=== PATIENT | male | born 1970 | race Caucasian/White ===

== ENCOUNTER 2018-10-31 20:54 | Outpatient (CLI) | payer BC | END 2018-11-01 06:34 | disposition home or self-care (01) | LOC: SLEEP 20:54 | PROVIDERS: ATTEND Family Medicine | DX: G47.33 Obstructive sleep apnea (adult) (pediatric) (principal); I10 Essential (primary) hypertension; R06.83 Snoring | CPT/HCPCS: 95811 ==

== ENCOUNTER 2020-06-20 09:27 | Emergency (ER) | payer BC ==
[~2020-06-20] VITALS: Ht 177 cm; Wt 117.0 kg
[2020-06-20] MEDS ORDERED: ACETAMINOPHEN 500 MG TAB (TYLENOL) ONE (09:41)
[2020-06-20] MEDS ORDERED: NS IV 1000 ML 1,000 ML ONE (09:41)
[2020-06-20] MEDS ORDERED: FENO134C (09:49)
[2020-06-20] MEDS ORDERED: AMLO-167 (09:49)
[2020-06-20] MEDS ORDERED: HYDR25TA4 (09:49)
--- NOTE | 2020-06-20 09:49 | ED Dyspnea ---
General Stated Complaint: LOW OXYGEN, COVID + 06/14/20 Source of Information: Patient Exam Limitations: No Limitations History of Present Illness Date Seen by Provider: Jun 20, 2020 Time Seen by Provider: 09:46 Initial Comments Patient is a 49-year-old male who presents to the emergency department today with a chief complaint of having low oxygen saturations at home this morning. Patient states that he was diagnosed with coronavirus on June 14. He started having symptoms he believes on June 12. Patient endorses headache, congestion and cough. No runny nose but he has had a mildly sore throat. He has a little bit of diarrhea but denies any problems with urination. He has had significantly decreased appetite with loss of taste and smell but he thinks that those are returning. Patient states he has sick contacts at home both his and his daughter also have coronavirus. 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 He also states that yesterday when he checked his oxygen it was somewhere in the mid 80s. He states he sat on his couch and took deep breaths and his oxygen levels came up. Patient states when he got up this morning he checked it and it was running at 88 to 89%. He denies a productive cough. He states it is mostly dry. He has been taking ibuprofen for the body aches, sore throat and headache. Last dose of ibuprofen was last night and he took 2 tablets. He also completed a Z-Kevin. He is also been taking some [id number] vitamins. All other review of systems reviewed and negative except as stated. Timing/Duration: 1 Week Severity: Moderate Prior Episodes/Possible Cause: Illness Exposure Associated Symptoms: Cough, Loss of Appetite Allergies and Home Medications Allergies Coded Allergies: No Known Drug Allergies (Unverified , 06/20/20) Patient Home Medication List Home Medication List Reviewed: Yes Review of Systems Review of Systems Constitutional: see HPI, malaise, weakness EENTM: throat pain Respiratory: cough; No short of breath Cardiovascular: no symptoms reported Gastrointestinal: diarrhea Genitourinary: no symptoms reported Musculoskeletal: no symptoms reported Skin: no symptoms reported Psychiatric/Neurological: No Symptoms Reported All Other Systems Reviewed Negative Unless Noted: Yes Physical Exam Vital Signs Vital Signs - First Documented 06/20/20 09:30 Temp 37.6 Pulse 73 Resp 16 B/P (MAP) 135/84 (101) Pulse Ox 89 O2 Delivery Room Air Capillary Refill : Height, Weight, BMI Height: '" Weight: lbs. oz. kg; BMI Method: General Appearance: No Apparent Distress, WD/WN HEENT: PERRL/EOMI Neck: Full Range of Motion, Normal Inspection Respiratory: No Accessory Muscle Use, No Respiratory Distress, Crackles (right basilar); No Respiratory Distress, No Wheezing; Other (Pulse Ox 89%) Cardiovascular: Regular Rate, Rhythm, No Murmur, Other (brisk capiallry refill) Peripheral Pulses: 2+ Radial Pulses (R), 2+ Radial Pulses (L) Gastrointestinal: Normal Bowel Sounds, Non Tender, Soft Extremity: Normal Inspection Neurologic/Psychiatric: Alert, Oriented x3, No Motor/Sensory Deficits, Normal Mood/Affect Skin: Normal Color, Warm/Dry Focused Exam Lactate Level 06/20/20 09:40: Lactic Acid Level 1.39 Lactic Acid Level Laboratory Tests Test 06/20/20 09:40 Lactic Acid Level 1.39 MMOL/L (0.50-2.00) Progress/Results/Core Measures Results/Orders Lab Results Laboratory Tests Test 06/20/20 09:40 Range/Units White Blood Count 3.0 L 4.3-11.0 10^3/uL Red Blood Count 4.78 4.30-5.52 10^6/uL Hemoglobin 14.4 13.3-17.7 g/dL Hematocrit 43 40-54 % Mean Corpuscular Volume 90 80-99 fL Mean Corpuscular Hemoglobin 30 25-34 pg Mean Corpuscular Hemoglobin Concent 33 32-36 g/dL Red Cell Distribution Width 13.0 10.0-14.5 % Platelet Count 162 130-400 10^3/uL Mean Platelet Volume 10.6 9.0-12.2 fL Immature Granulocyte % (Auto) 0 % Neutrophils (%) (Auto) 71 42-75 % Lymphocytes (%) (Auto) 20 12-44 % Monocytes (%) (Auto) 8 0-12 % Eosinophils (%) (Auto) 0 0-10 % Basophils (%) (Auto) 0 0-10 % Neutrophils # (Auto) 2.2 1.8-7.8 10^3/uL Lymphocytes # (Auto) 0.6 L 1.0-4.0 10^3/uL Monocytes # (Auto) 0.2 0.0-1.0 10^3/uL Eosinophils # (Auto) 0.0 0.0-0.3 10^3/uL Basophils # (Auto) 0.0 0.0-0.1 10^3/uL Immature Granulocyte # (Auto) 0.0 0.0-0.1 10^3/uL Sodium Level 136 135-145 MMOL/L Potassium Level 3.9 3.6-5.0 MMOL/L Chloride Level 101 98-107 MMOL/L Carbon Dioxide Level 24 21-32 MMOL/L Anion Gap 11 5-14 MMOL/L Blood Urea Nitrogen 21 H 7-18 MG/DL Creatinine 1.36 H 0.60-1.30 MG/DL Estimat Glomerular Filtration Rate 55 BUN/Creatinine Ratio 15 Glucose Level 119 H 70-105 MG/DL Lactic Acid Level 1.39 0.50-2.00 MMOL/L Calcium Level 8.9 8.5-10.1 MG/DL Corrected Calcium 8.7 8.5-10.1 MG/DL Total Bilirubin 0.7 0.1-1.0 MG/DL Aspartate Amino Transf (AST/SGOT) 41 H 5-34 U/L Alanine Aminotransferase (ALT/SGPT) 41 0-55 U/L Alkaline Phosphatase 36 L 40-136 U/L C-Reactive Protein High Sensitivity 8.54 H 0.00-0.50 MG/DL Total Protein 8.1 6.4-8.2 GM/DL Albumin 4.2 3.2-4.5 GM/DL Procalcitonin 0.08 <0.10 NG/ML My Orders Orders - VALORIE HANKS MD Ns Iv 1000 Ml (Sodium Chloride 0.9%) (06/20/20 09:41) Acetaminophen Tablet (Tylenol Tablet) (06/20/20 09:41) Cbc With Automated Diff (06/20/20 09:49) Comprehensive Metabolic Panel (06/20/20 09:49) Blood Culture (06/20/20 09:49) Hs C Reactive Protein (06/20/20 09:49) Procalcitonin (Pct) (06/20/20 09:49) Chest 1 View, Ap/Pa Only (06/20/20 09:49) Ed Iv/Invasive Line Start (06/20/20 09:49) Lactic Acid Analyzer (06/20/20 09:49) Acetaminophen Tablet (Tylenol Tablet) (06/20/20 10:00) Ns Iv 1000 Ml (Sodium Chloride 0.9%) (06/20/20 10:00) Albuterol Inhaler (Ventolin Hfa) (06/20/20 10:17) Medications Given in ED Current Medications Medications Dose Ordered Sig/Gabriel Route Start Time Stop Time Status Last Admin Dose Admin Acetaminophen 1,000 mg ONCE ONCE PO 06/20/20 10:00 06/20/20 10:01 DC 06/20/20 09:56 1,000 MG Vital Signs/I&O 06/20/20 09:30 Temp 37.6 Pulse 73 Resp 16 B/P (MAP) 135/84 (101) Pulse Ox 89 O2 Delivery Room Air Progress Progress Note : Time: 10:41 Progress Note Patient is receiving 1 L of normal saline; chest x-ray as read per radiologist shows mild patchy bibasilar opacities consistent with an inflammatory or infectious process. Patient is given albuterol via MDI to hopefully improve his oxygen saturations above 90. Resting comfortably no complaints. 1132 Patient received 1 L of normal saline fluid bolus. He also had Tylenol as well as several puffs of an albuterol inhaler. Patient states that he is feeling better. He has been monitored for approximately 30 minutes post albuterol. His oxygen saturations have continued to stay about 93%. He looks well. He is agreeable with discharge. Discussed with Dr. Mane. We will place the patient on 40 mg of prednisone daily for the next 6 days. Patient is given good return precautions. He verbalizes understanding, all questions are sought and answered and he is stable for discharge. Diagnostic Imaging Diagonstic Imaging: Xray Plain Films/CT/US/NM/MRI: chest Comments [facility], [place] NAME: AMARJIT ROLLE [facility] REC#: [id number] PT STATUS: REG ER : 1970 PHYSICIAN: VALORIE HANKS MD ADMIT DATE: 06/20/20/ER Draft Date of Exam:06/20/20 CHEST 1 VIEW, AP/PA ONLY Clinical indications: Patient with cough and low oxygen. COVID positive. Exam: Portable chest x-ray upright view. Comparisons: None. Findings: Lungs/pleura: There are mild patchy airspace opacities involving both lower lung field regions. The remainder of lungs are clear. There is no pneumothorax. There is no pleural effusion. Mediastinum: Unremarkable. Pulmonary vasculature: Unremarkable. Heart: Unremarkable. Bones/extrathoracic soft tissue: Unremarkable. Impression: There are mild patchy airspace opacities involving both lower lung field regions which may represent infectious or inflammatory process. Dictated on workstation # [id number] Dict: 06/20/20 1018 Trans: 06/20/20 1028 [facility] [id number] Interpreted by: KATHLEEN YODER MD Electronically signed by: Departure Impression Primary Impression: Pneumonia due to 2019 novel coronavirus Additional Impression: Hypoxia Disposition: 01 HOME, SELF-CARE Condition: Stable Departure-Patient Inst. Referrals: GABO VIVAS DO (PCP/Family) Primary Care Physician Patient Instructions: Coronavirus Disease 2019 (COVID-19) ED Add. Discharge Instructions: Drink plenty of fluids to stay well-hydrated. Use the albuterol inhaler 2 puffs every 4 hours as needed for shortness of breath or oxygen levels that are 90 or below. I have given you a prescription as well for steroids. Please take the steroids daily for the next week. If your oxygen level is staying persistently below 90 please come back to the emergency room for reevaluation. Scripts Prednisone (Prednisone) 20 Mg Tab 40 MG PO DAILY, #6 TAB 0 Refills Prov: VALORIE HANKS MD 06/20/20 Albuterol Sulfate (PROAIR HFA) 1 Puff Puff 2 PUFF IH Q4H PRN for shortness of breath, #1 PUFF 1 PUFF = 90 MCG Prov: VALORIE HANKS MD 06/20/20 Copy Copies To 1: GABO VIVAS KATHRYN M MD Jun 20, 2020 09:49
[2020-06-20 09:58] LABS: BASOPHILS % (AUTO) 0 % (0-10); EOSINOPHILS % (AUTO) 0 % (0-10); HEMATOCRIT 43 % (40-54); HEMOGLOBIN 14.4 g/dL (13.3-17.7); LYMPHOCYTES # (AUTO) 0.6 10^3/uL (1.0-4.0); LYMPHOCYTES % (AUTO) 20 % (12-44); MEAN CORPUSCULAR HEMOGLOBIN 30 pg (25-34); MEAN CORPUSCULAR HGB CONC 33 g/dL (32-36); MEAN CORPUSCULAR VOLUME 90 fL (80-99); MEAN PLATELET VOLUME 10.6 fL (9.0-12.2); MONOCYTES # (AUTO) 0.2 10^3/uL (0.0-1.0); MONOCYTES % (AUTO) 8 % (0-12); NEUTROPHILS # (AUTO) 2.2 10^3/uL (1.8-7.8); NEUTROPHILS % (AUTO) 71 % (42-75); PLATELET COUNT 162 10^3/uL (130-400)
[2020-06-20] MEDS ORDERED: ACETAMINOPHEN 500 MG TAB (TYLENOL) PO ONE (10:00)
[2020-06-20] MEDS ORDERED: NS IV 1000 ML 1,000 ML IV SCH (10:00)
[2020-06-20 10:02] LABS: ALBUMIN 4.2 GM/DL (3.2-4.5)
[2020-06-20 10:03] LABS: POTASSIUM 3.9 MMOL/L (3.6-5.0)
[2020-06-20 10:04] LABS: CALCIUM 8.9 MG/DL (8.5-10.1)
[2020-06-20 10:05] LABS: TOTAL PROTEIN 8.1 GM/DL (6.4-8.2)
[2020-06-20 10:07] LABS: BILIRUBIN,TOTAL 0.7 MG/DL (0.1-1.0)
[2020-06-20 10:09] LABS: CREATININE SERUM 1.36 MG/DL (0.60-1.30)
[2020-06-20] MEDS ORDERED: RT-ALBUTEROL INHALER HFA (VENTOLIN HFA) 18 GM IH STA (10:17)
--- NOTE | 2020-06-20 10:29 | Diagnostic Imaging Report ---
Clinical indications: Patient with cough and low oxygen. COVID positive. Exam: Portable chest x-ray upright view. Comparisons: None. Findings: Lungs/pleura: There are mild patchy airspace opacities involving both lower lung field regions. The remainder of lungs are clear. There is no pneumothorax. There is no pleural effusion. Mediastinum: Unremarkable. Pulmonary vasculature: Unremarkable. Heart: Unremarkable. Bones/extrathoracic soft tissue: Unremarkable. Impression: There are mild patchy airspace opacities involving both lower lung field regions which may represent infectious or inflammatory process. Dictated by: Dictated on workstation # [id number]
--- NOTE | 2020-06-20 10:42 | NUR ---
PULSE OX ON 2LNC 96%. OXYGEN TAKEN OFF ET EDUCATION GIVEN ON ALBUEROL INHALER.
--- NOTE | 2020-06-20 10:44 | NUR ---
DR VIVAS HERE.
--- NOTE | 2020-06-20 11:27 | NUR ---
IN TALKING TO THE PT. PULSE OX 93% ON ROOM AIR.
[2020-06-20] MEDS ORDERED: RT-ALBUINH IH (11:36)
[2020-06-20] MEDS ORDERED: PRD20T PO (11:40)
[2020-06-20 11:50] VITALS: BP 114/62
== END 2020-06-20 11:50 | disposition home or self-care (01) ==
LOC: EDUNIT# 09:27 → ER 09:29
DX: U07.1 COVID-19 (principal); J12.82 Pneumonia due to coronavirus disease 2019; R09.02 Hypoxemia
CPT/HCPCS: 36415; 71045; 80053; 83605; 84145; 85025; 86141; 87040

== ENCOUNTER 2020-12-14 05:37 | Outpatient (CLI) | payer BC ==
[~2020-12-14] VITALS: Ht 182.9 cm; Wt 123.1 kg
[~2020-12-14 05:37] MED LIST: AMLO-167; FENO134C; HYDR25TA4; PRD20T PO; RT-ALBUINH IH
[2020-12-14] MEDS ORDERED: FENO134C PO (16:11)
[2020-12-14] MEDS ORDERED: HYDR25TA4 PO (16:11)
[2020-12-14] MEDS ORDERED: SILD100T67 PO (16:13)
[2020-12-14] MEDS ORDERED: AMLO-167 PO (16:13)
== END 2020-12-14 16:46 | disposition home or self-care (01) ==
LOC: PREOP 05:37
PROVIDERS: ATTEND Surgery
DX: Z01.818 Encounter for other preprocedural examination (principal)

== ENCOUNTER 2020-12-21 06:51 | Day surgery (SDC) | payer BC ==
[~2020-12-21] VITALS: Ht 182.9 cm; Wt 123.1 kg
[~2020-12-21 06:51] MED LIST changes: +AMLO-167 PO; +FENO134C PO; +HYDR25TA4 PO; +SILD100T67 PO
[2020-12-21] MEDS ORDERED: LACTATED RINGERS 1,000 ML IV STA (07:08)
[2020-12-21 07:10] VITALS: BP 124/65
[2020-12-21] MEDS ORDERED: LACTATED RINGERS 1,000 ML IV ONE (07:16)
[2020-12-21] MEDS ORDERED: proPOfol 200 MG/20 ML (DIPRIVAN) VIAL IV ONE (08:15)
[2020-12-21] MEDS ORDERED: MIDAZOLAM 2 MG/2 ML (VERSED) VIAL ONE (08:15)
--- NOTE | 2020-12-21 08:37 | Discharge Inst-Simple/Standard ---
Discharge Inst-Standard Patient Instructions/Follow Up Plan of Care/Instructions/FU: 10 year repeat colonoscopy unless family history colon cancer 5 years. Any issues before that be seen at that time. Activity as Tolerated: Yes Discharge Diet: Regular Diet (high fiber) JOSE HSIEH DO Dec 21, 2020 08:37
[2020-12-21 08:38] VITALS: BP 105/65
--- NOTE | 2020-12-21 08:38 | Progress Note-Post Operative ---
Post-Operative Progess Note Surgeon (s)/Billet Checker (s) Surgeon JOSE HSIEH DO Billet Checker: na Pre-Operative Diagnosis screening colonoscopy Post-Operative Diagnosis normal colon Procedure & Operative Findings Date of Procedure 12/21/20 Procedure Performed/Findings colonoscopy Anesthesia Type per sack cleaner Estimated Blood Loss Estimated blood loss (mL): none Specimens/Packing Specimens Removed none JOSE HSIEH DO Dec 21, 2020 08:38
[2020-12-21 08:40] VITALS: BP 118/74
[2020-12-21 08:45] VITALS: BP 117/63
[2020-12-21 08:55] VITALS: BP 117/63
[2020-12-21 09:11] VITALS: BP 109/66
--- NOTE | 2020-12-21 13:23 | OPERATIVE REPORT ---
DATE OF SERVICE: 12/21/2020 PREOPERATIVE DIAGNOSIS: Screening colonoscopy. POSTOPERATIVE DIAGNOSIS: Normal colon. PROCEDURE PERFORMED: Colonoscopy. SURGEON: Jose Jara DO. ANESTHESIA: Per BARREL TURNER. ESTIMATED BLOOD LOSS: None. COMPLICATIONS: None. INDICATIONS FOR PROCEDURE: The patient is a 50-year-old male needing screening colonoscopy. He understands the risks and benefits of the procedure and wished to proceed with the procedure. Consent was signed in the chart. DESCRIPTION OF PROCEDURE: The patient was taken to the endoscopy suite and placed in the left lateral recumbent position. Timeout was performed. Digital rectal exam was performed. No palpable polyps, masses or ulcerations. Scope was inserted in the rectum and advanced all the way to cecum with minimal difficulty. Prep was adequate. Scope was then slowly retracted back. No polyps, masses or ulcerations within the cecum, ascending, transverse, descending and sigmoid colon. Once in the rectum, scope was retroflexed noting no other pathology. Scope was returned to its normal position, slowly withdrawn until completely removed. The patient tolerated the procedure well without any complications and taken to the recovery room in a stable condition. RECOMMENDATIONS: The patient will need repeat colonoscopy in 10 years unless family history of colon cancer, which would then be 5 years. Any issues before that be seen at that time for reevaluation. Job ID: [id number] DocumentID: [id number] Dictated Date: 12/21/2020 08:40:18 Blending Line Attendant Date: 12/21/2020 13:23:15 Dictated By: JOSE JARA DO
--- NOTE | 2020-12-21 13:43 | Anesthesia-General Post-Op ---
MAC Patient Condition Mental Status/LOC: Same as Preop Cardiovascular: Satisfactory Nausea/Vomiting: Absent Respiratory: Satisfactory Pain: Controlled Complications: Absent Post Op Complications Complications None Follow Up Care/Instructions Patient Instructions None needed. Anesthesiology Discharge Order Discharge Order Patient is doing well, no complaints, stable vital signs, no apparent adverse anesthesia problems. No complications reported per nursing. KELLY MYERS CRNA Dec 21, 2020 13:43
== END 2020-12-21 09:15 | disposition home or self-care (01) ==
LOC: ENDO 06:51
PROVIDERS: ATTEND Surgery
DX: Z12.11 Encounter for screening for malignant neoplasm of colon (principal); I10 Essential (primary) hypertension; Z79.2 Long term (current) use of antibiotics; Z79.899 Other long term (current) drug therapy